=== PATIENT | male | born 1940 | race Caucasian/White ===

== ENCOUNTER 2022-02-22 08:44 | Emergency (ER) | payer MEDICARE ==
[2022-02-22 09:49] LABS: BASOPHIL 0.1 % (0-2); EOSINOPHIL 0.2 % (0-7); HCT 48.8 % (42.0-52.0); HGB 16.2 g/dl (13.2-18.0); LYMPHOCYTE 6.3 % (15-48); MCHC 33.2 g/dL (32.0-36.0); MCV 90.4 fL (78.0-100.0); MONOCYTE 4.8 % (0-12); MPV 11.2 fL (6.0-9.5); NEUTROPHIL 88.4 % (41-80); NRBC 0; PLT 155 K/uL (150-400); WBC 8.4 K/uL (4.0-10.5)
[2022-02-22 10:00] LABS: INR 1.01 (0.9-1.2); PTT 24.6 SECONDS (24.9-34.6)
[2022-02-22 10:07] LABS: ALBUMIN 4.1 g/dL (3.4-5.0); BILIRUBIN - TOTAL 1.6 mg/dL (0.2-1.0); BUN/CREAT RATIO (CALC) 31.6 RATIO; CREATININE 0.79 mg/dL (0.67-1.17); GLOBULIN (CALCULATION) 2.7 g/dL; TOTAL PROTEIN 6.8 g/dL (6.4-8.2)
== END 2022-02-22 10:35 | disposition home or self-care (01) ==
LOC: FER 08:44
PROVIDERS: Emergency Medicine
DX: R19.7 Diarrhea, unspecified (principal); I10 Essential (primary) hypertension; Z28.310 Unvaccinated for COVID-19
CPT/HCPCS: 36415; 74022; 80053; 85025; 85610; 85730